=== PATIENT | male | born 1955 | race Caucasian/White ===

== ENCOUNTER → 2018-09-18 | Outpatient (CLI) | payer BC, OTHER ==
[~2018-09-18] VITALS: Ht 180.3 cm; Wt 119.8 kg
[~2018-09-18] MED LIST: AMITRIPTYLINE H10 M3 PO; CELEXA10 MG PO; CHLORZOXAZONE500 MG PO; CRESTOR5 MG PO; EDARBYCLOR 40-1 EAC1 PO; FLEXERIL PO; LOSARTAN POTAS100 MG PO; MEDROLDOSEPACK PO; METFORMIN HCL500 MG PO; MOBIC15 MG PO; NAPROSYN500 MG PO; NEURONTIN 300300 M1 PO; NORCO 5-325 TA1 EAC1 PO; NORVASC10 MG PO; OXYCODONE HCL10 MG PO; PERCOCET PO; ZANAFLEX4 MG PO
[2018-09-18 10:03] VITALS: BP 128/86
--- NOTE | 2018-09-18 10:08 | NUR ---
Pain Clinic Assessment: 1. History of Osteoarthritis: NONE History of Rheumatoid Arthritis: NONE 2. Height: 5 ft. 11 in. 180.3 cm. Weight: 264.0 lb. oz. 119.750 kg. Patient's BMI: 36.8 3. Vital Signs: BP: 128/86 Pulse: 76 Resp: 16 Temp: 02 Sat: 98 ECG Mon: 4. Pain Intensity: 9 5. Fall Risk: Dizziness: N Needs help standing or walking: N Fallen in the last 3 months: N Fall risk comments: Y 6. Patient on Blood Thinner: None 7. History of Hypertension: Y 8. Opioid Therapy greater than 6 weeks: Opiate Contract Signed: 9. Risk Assessment Tool Provided: 10. Functional Assessment Tool: 11. Recreational Drug Use: Never Drug Type: Tobacco Use: Never Smoker Tobacco Type: Amount or Packs/day: How Many Years: Alcohol Use: Yes Frequency: Daily Quant: 1-2
--- NOTE | 2018-09-23 08:41 | HPC ---
[facility] [address] [address] PAIN MANAGEMENT CONSULTATION Name: TATY NUGENT [id number] Admission: 09/18/18 Attend Phys: Ginny Brown MD Discharge: Date of : 59 Report #: [id number] THIS REPORT FOR: //name// CC: Ginny Weems DATE OF SERVICE: 09/18/2018 CHIEF COMPLAINT: Left arm pain and mid back pain. HISTORY OF PRESENT ILLNESS: The patient is a 63-year-old gentleman who has been referred to the pain clinic for evaluation of arm pain. The patient states that for about the last 8 days he has had significant pain involving his right arm. States that he had his first episode after playing golf. While playing golf. He noticed some increase pain in his upper back. He set out that particular golf hole. He played the next hole and after completing play, he noticed that pain continued to worsen. He woke up the next day and started to experience more pain. By 2-3 p.m., he was in significant pain and found the pain quite problematic. He then sought consultation with a physician. He underwent an injection to the affected area in his back. He did not find that is helpful. He was provided with a muscle relaxant medication as well as hydrocodone to help quell the pain. Neither of these seem to be very effective. He has been "lying on his back" for the last 8 days. The pain is quite problematic. Sitting up is very uncomfortable. Pain improves somewhat when he lies flat on his back. He denies any similar episodes of these in the past. ALLERGIES: No known drug allergies. CURRENT MEDICATIONS: Hydrocodone 5 mg one p.o. 4-6 hours p.r.n., chlorzoxazone 500 mg muscle relaxant for spasms, Celexa 10 mg 1/2 tablet, metformin 500 mg, Edarbyclor 40/25, Meloxicam 15 mg, Medrol Dosepak has been used, and amlodipine 10 mg. PAST SURGICAL HISTORY: Coronary calcium scan score 239, 2013 diverticulitis 2011, epididymal cyst 2015. Essential hypertension, coronary artery disease, ejection fraction 65%, 2011, hypercholesterolemia 2002, rotator cuff tear, skin cancer screening, sleep apnea/obstruction, stress echocardiogram 2016, type 2 diabetes 2017. A1c 6.3. PAST SURGICAL HISTORY: Appendectomy, left knee arthroscopy, tonsillectomy. SOCIAL HISTORY: He is a [employer]. He is working at this juncture. REVIEW OF SYSTEMS: Generally good health, hearing loss, chronic sinus problems, frequent urination, numbness and tingling sensation, lightheadedness and [facility] [address] [place] [address] PAIN MANAGEMENT CONSULTATION Name: TATY NUGENT [id number] Admission: 09/18/18 Attend Phys: Ginny Brown MD Discharge: Date of : 59 Report #: [id number] dizziness at times. LABORATORY DATA: The patient this morning had an MRI of his neck. Radiology report has not been released, but findings through my observations indicate C5-C6 and C6-C7 notes disk changes with loss of disk space. There is some narrowing in the area with some bulging and irritation of the nerves at the C5, C6, and C7 area. PAIN CLINIC ASSESSMENT/PQRS: 1. The patient is not being treated for osteoarthritis or rheumatoid arthritis. 2. Height 5 feet 11 inches, weight 264 pounds, BMI is 36.8. 3. VITAL SIGNS: Blood pressure 128/86, pulse 76, respiratory rate 16, room air saturation 98%. 4. Pain intensity 9/10. 5. Fall history: The patient has not fallen in the last 3 months. 6. Blood thinner. The patient is not on a blood thinning medication. 7. Hypertension. The patient is being treated for hypertension. 8. Opioids greater than 6 weeks. 9. Low risk for opioid use. 10. Functional assessment tool 57/70. 11. Recreational drug use, the patient denies use of recreational drugs. 12. Tobacco: The patient has never smoked. 13. Alcohol. The patient drinks 1-2 alcoholic beverages daily. PHYSICAL EXAMINATION: GENERAL: The patient is a well-developed, well-nourished, obese white male, appears his stated age. He is outwardly showing some signs of intense discomfort. States that he has difficulty sitting. While sitting on the bed, complains of increased pain in his right shoulder, right arm irritation in the area of his "funny bone," and numbness and tingling down into the little finger and ring finger on the right side. The patient obviously appears to be in significant amount of discomfort with localization, which generally indicate discomfort. NECK: Without adenopathy or JVD. HEART: Regular rate. ABDOMEN: Nontender. Bowel sounds present. LUNGS: Generally clear to auscultation. EXTREMITIES: Upper extremity muscle strength on the left is judged to be 5/5 for the major muscle groups. The patient's right side with 4-/5 strength. Does complain of pain and discomfort in the shoulder, arm and down into his fingers with decreased muscle strength. The patient's anterior and posterior spring tests was negative. Brian sign is negative. The patient elects to lie down during the interview. Sitting causes worsening of pain and discomfort, which radiates down into his hand. The patient appears anxious. States that this pain has been going on for the last 8 days and is very disruptive to his life. [facility] [address] [place] [address] PAIN MANAGEMENT CONSULTATION Name: TATY NUGENT Room #: REG [facility].#: [id number] Admission: 09/18/18 Attend Phys: Ginny Brown MD Discharge: Date of : 59 Report #: [id number] RECOMMENDATION: The patient's is present. A model was used to indicate the area of probable pathology. We then reviewed the patient's MRI, pointing out the areas of narrowing in his neck. These do correspond to the sensory changes, which he has been experiencing. Risks and benefits of cervical epidural steroid injection was discussed. The patient states that his pain was very severe. We had discussed the policies of [employer] regarding injections. At this point, the patient states that his pain is so severe that he would pay for himself. He would consider paying for himself. I explained to the patient, I am not sure that charges that would occur as a result of an injection without insurance. Because of the patient's severe pain and inability to sit as well as his severe discomfort, we would like to proceed with a cervical epidural steroid injection. We discussed the risks and benefits of the procedure. They could include but are not limited to infection, worsening of pain, nerve damage, bleeding, spinal headache and paresis. The patient elects to proceed. PROCEDURE NOTE: The patient was taken to the procedure area. He was then assisted in getting on the examination table. A pillow was placed under his chest. Fluoroscopy using anterior, posterior as well as lateral viewing were implemented. The patient's neck was sterilely prepped with a Betadine solution. At the C7-T1 interspace, 0.25% bupivacaine was infiltrated into the skin to numb this area. A 25-gauge needle was used. A 17-gauge Tuohy with loss of resistance technique was used to gain access to the epidural space. There was no CSF, heme or paresthesia. A total of 120 mg triamcinolone was injected after appropriate placement at the C7-T1 interspace. The patient tolerated the procedure well. He was taken to the recovery room where he remained for an appropriate amount of time. We have discussed other options to help control the pain. The patient will try Elavil. We explained to the patient the Elavil medication is the one that is commonly used for depression. We find this medication can be quite helpful particularly in pain where nerves were involved. We will have the patient take one 10 mg tablet for 2 days. If he finds that he is not sleeping well and having no problems with it, he will then take a third pill, this will be 20 or 30 mg. He will take this for 2 days. If he finds that it is not helping, the will take an additional which will be 40 mg of Elavil at bedtime. At that point, if his pain continues, he would then add gabapentin 300 mg pills, 1 pill daily for 5 days. He will then follow up with 1 pill in the morning, 1 pill at night for 3 days and rising to the level of 3 pills daily. Should he have any problems or concerns, he will call us. Hopefully, he will continue to improve. We would like to thank you for letting us participate in his care. We hope he continues to improve. <ELECTRONICALLY SIGNED> By: Ginny Brown MD 09/23/18 [id number] Ginny Brown MD /dread
== END | disposition home or self-care (01) ==
LOC: PAIN 09:03
DX: M50.222 Other cervical disc displacement at C5-C6 level (principal); M48.02 Spinal stenosis, cervical region; M54.12 Radiculopathy, cervical region; M54.5 Low back pain; I10 Essential (primary) hypertension; I25.10 Atherosclerotic heart disease of native coronary artery without angina pectoris; E78.00 Pure hypercholesterolemia, unspecified; G47.33 Obstructive sleep apnea (adult) (pediatric); E11.9 Type 2 diabetes mellitus without complications; Z90.49 Acquired absence of other specified parts of digestive tract; Z98.890 Other specified postprocedural states; Z79.891 Long term (current) use of opiate analgesic; Z79.899 Other long term (current) drug therapy; Z68.36 Body mass index [BMI] 36.0-36.9, adult

== ENCOUNTER → 2018-10-07 | Outpatient (CLI) | payer BC, OTHER ==
[~2018-10-07] VITALS: Ht 180.3 cm; Wt 122.5 kg
--- NOTE | ~2018-10-07 | HPC ---
[facility] [address] [place] [address] PAIN MANAGEMENT CONSULTATION Name: TATY NUGENT Room #: [facility].#: [id number] Admission: 10/07/18 Attend Phys: Ginny Brown MD Discharge: Date of : 59 Report #: [id number] THIS REPORT FOR: //name// CC: Ginny Weems DATE OF SERVICE: 10/14/2018 CHIEF COMPLAINT: Upper back and right arm pain. HISTORY: The patient is a 63-year-old gentleman who has been seen in the pain clinic because of pain and discomfort. He is experiencing pain and discomfort involving his right arm. He was playing golf. Noticed onset of pain and discomfort, which has been quite problematic. He then underwent a cervical epidural steroid injection. He notices significant improvement in his pain. He is having less pain, but still has some numbness and tingling in the right arm. He had no complications from the last injection. He is contemplating whether or not another injection would be warranted. Rates his pain as a 2-3/10. Notes that the pain is exacerbated when he is standing. Notes it improves somewhat when he is lying down and has taken the stretch of his right arm. Stretching the arm makes things more difficult. ALLERGIES: No known drug allergies. CURRENT MEDICATIONS: Hydrocodone 5/325 one p.o. 4-6 hours p.r.n., chlorzoxazone 500 mg muscle relaxant for spasms, Celebrex, Celexa 10 mg 1/2 tablet, metformin 500 mg, Edarbyclor 40/25, meloxicam 15 mg, amlodipine 10 mg. PAIN CLINIC ASSESSMENT/PQRS: 1. The patient is not being treated for osteoarthritis or rheumatoid arthritis. 2. Height 5 feet 11 inches, weight 270 pounds, BMI is 37.7. 3. Vital signs: Blood pressure 135/70, pulse is 84, respiratory rate 16, room air saturation 96%. 4. Pain intensity 2-05/10. 5. Fall risk. The patient has not fallen in the last 3 months. 6. Blood thinner. The patient is not on a blood thinning medication. 7. Hypertension. The patient is being treated for hypertension. 8. Opioids greater than 6 weeks. The patient is not on a regular opioid regimen. 9. Risk assessment tool, low for opioid use. 10. Functional assessment tool 57/70. 11. Recreational drugs. The patient denies use of recreational drugs. 12. Tobacco: The patient has never smoked. 13. Alcohol: The patient drinks alcoholic beverages on a weekly basis. PHYSICAL EXAMINATION: [facility] [address] [place] [address] PAIN MANAGEMENT CONSULTATION Name: TATY NUGENT Room #: REG [facility]#: [id number] Admission: 10/07/18 Attend Phys: Ginny Brown MD Discharge: Date of : 59 Report #: [id number] GENERAL: The patient is a well-developed, well-nourished, somewhat obese white male, appears his stated age. He is alert and oriented x 3. His affect is appropriate. Speech is fluent. HEENT: Normocephalic, atraumatic. Extraocular eye muscles intact. Sclerae nonicteric. Mucous membranes are moist. NECK: Without adenopathy or JVD. HEART: Regular rate. ABDOMEN: Nontender. Bowel sounds present. LUNGS: Generally clear to auscultation. EXTREMITIES: Upper extremity muscle strength judged to be 5-/5 for the major muscle groups in the upper extremity. The patient has some numbness and weakness involved in the right arm. Muscle strength 5/5 for the major muscle groups. The patient has most discomfort with this sensation of numbness in the right arm. Lower extremity muscle strength is judged to be 5/5 for the major muscle groups. IMPRESSION: 1. Cervical radiculopathy. 2. Hypertension. 3. Coronary artery disease. 4. Sleep apnea. 5. Diabetes. RECOMMENDATIONS: We discussed the treatment options with the patient. Risk and benefits of an epidural steroid injection were again discussed. The patient has improved from the initial visit. He is having less pain, but does note some numbness and tingling down into his arm. At this juncture, we have discussed the conservative approach. He will try a Medrol Dosepak to note its efficacy at this point. He will then return to the pain clinic in the future. We explained to the patient that most insurance carriers require at least 30 days between injections. He is willing to use a Medrol Dosepak. He will take this and use it over the next few days. Hopefully, his numbness will continue to improve and subside. If it continues to be problematic and notes radicular pain. We will consider a cervical epidural steroid injection in the near future. We would like to thank you for letting us participate in his care. We hope he continues to improve. By: [id number] Ginny Brown MD /dread
[2018-10-07 08:20] VITALS: BP 135/70
--- NOTE | 2018-10-07 08:36 | NUR ---
Pain Clinic Assessment: 1. History of Osteoarthritis: NONE History of Rheumatoid Arthritis: NONE 2. Height: 5 ft. 11 in. 180.3 cm. Weight: 270.0 lb. oz. 122.472 kg. Patient's BMI: 37.7 3. Vital Signs: BP: 135/70 Pulse: 84 Resp: 16 Temp: 02 Sat: 96 ECG Mon: 4. Pain Intensity: 2-3 5. Fall Risk: Dizziness: Y Needs help standing or walking: N Fallen in the last 3 months: N Fall risk comments: Y 6. Patient on Blood Thinner: None 7. History of Hypertension: Y 8. Opioid Therapy greater than 6 weeks: N Opiate Contract Signed: 9. Risk Assessment Tool Provided: 10. Functional Assessment Tool: 11. Recreational Drug Use: Never Drug Type: Tobacco Use: Never Smoker Tobacco Type: Amount or Packs/day: How Many Years: Alcohol Use: Yes Frequency: Weekly Quant:
== END ==
LOC: PAIN 06:47
DX: M79.601 Pain in right arm (principal); M54.9 Dorsalgia, unspecified; M54.12 Radiculopathy, cervical region; I10 Essential (primary) hypertension; I25.10 Atherosclerotic heart disease of native coronary artery without angina pectoris; G47.30 Sleep apnea, unspecified; E11.9 Type 2 diabetes mellitus without complications; Z79.899 Other long term (current) drug therapy; Z79.84 Long term (current) use of oral hypoglycemic drugs

== ENCOUNTER → 2018-10-21 | Outpatient (CLI) | payer BC, OTHER ==
[~2018-10-21] VITALS: Ht 180.3 cm; Wt 121.9 kg
--- NOTE | ~2018-10-21 | HPC ---
[facility] [address] [address] PAIN MANAGEMENT CONSULTATION Name: TATY NUGENT Room #: REG [facility]#: [id number] Admission: 10/21/18 Attend Phys: Ginny Brown MD Discharge: Date of : 59 Report #: [id number] THIS REPORT FOR: //name// CC: Ginny Weems DATE OF SERVICE: 10/21/2018 CHIEF COMPLAINT: The pain has improved, but I am still having some numbness on the end of my ring finger and little finger on the right hand. HISTORY: The patient is a 63-year-old gentleman who has been seen in the pain clinic because of neck pain. He was golfing. After playing golf, he noted some pain and discomfort. He stopped playing at that particular hole. The subsequent whole he begin playing again. He noted increasing pain and discomfort with some spasms up in his neck as well as down into his right hand. He was seen in the pain clinic and underwent a cervical epidural steroid injection. He did note some improvement in the pain. Continues to have some discomfort in the right side, which he finds somewhat distressing. After working for long periods during the day, he notes that his arm becomes more problematic in the afternoon. He notes that the numbness in his fingers affects his ability to write. He has had no complication from the last injection and has returned today with the hopes of undergoing another epidural steroid injection. ALLERGIES: No known drug allergies. CURRENT MEDICATIONS: Hydrocodone 5/325 one p.o. 4-6 hours p.r.n., chlorzoxazone 500 mg for muscle spasms, Celebrex, Celexa 10 mg one-half tablet, metformin 500 mg, Edarbyclor 40/25, meloxicam 15 mg, amlodipine 10 mg. PAIN CLINIC ASSESSMENT AND PQRS: 1. The patient is not being treated for osteoarthritis or rheumatoid arthritis. 2. Height 5 feet 11 inches, weight 268 pounds, BMI is 37.5. 3. Vital Signs: Blood pressure 118/70, pulse 89, respiratory rate 16, room air saturation is 94%. 4. Pain intensity 3-10. 5. Fall history: The patient has not fallen in the last 3 months. 6. Blood thinner. The patient is not on a blood thinning medication. 7. Hypertension. The patient is being treated for hypertension. 8. Opioids greater than 6 weeks. The patient is not on an opioid contract. 9. Risk assessment tool, low for opioid use. 10. Functional assessment tool 57/70. 11. Recreational drug use. The patient denies use of recreational drugs. 12. Tobacco: The patient has never smoked. 13. Alcohol: The patient does drink alcoholic beverages on occasion. [address] [address] PAIN MANAGEMENT CONSULTATION Name: TATY NUGENT Room #: REG CLI [facility].#: [id number] Admission: 10/21/18 Attend Phys: Ginny Brown MD Discharge: Date of : 59 Report #: [id number] PHYSICAL EXAMINATION: GENERAL: The patient is a well-developed, well-nourished, somewhat obese white male, appears his stated age. He is alert and oriented x 3. His affect is appropriate. Speech is fluent. HEENT: Normocephalic, atraumatic. Extraocular eye muscles intact. Sclerae nonicteric. Mucous membranes are moist. NECK: Without adenopathy or JVD. HEART: Regular rate. ABDOMEN: Nontender. Bowel sounds present. LUNGS: Clear to auscultation. EXTREMITIES: Upper extremity muscle strength judged to be 5/5 for the major muscle groups in the upper extremity. The patient has some pain and discomfort in the right shoulder with pain radiating down to the arm, forearm and down into his fingers. The dorsum of his hand is numb with numbness in the tip of his ring finger and little finger. IMPRESSION: 1. Cervical radiculopathy, which has improved, but still problematic. 2. Hypertension. 3. Coronary artery disease. 4. Sleep apnea. 5. Diabetes. RECOMMENDATIONS: We discussed treatment options with the patient. Risks and benefits of an epidural steroid injection in the cervical area were discussed. They include but are not limited to infection, worsening in pain, no improvement in pain, spinal headache. The patient elects to proceed. PROCEDURE NOTE: The patient was assisted in getting on examination table. His back was sterilely prepped with a Betadine solution. A 0.25% bupivacaine was infiltrated at the C7-T1 interspace. A 25-gauge needle was then used to anesthetize the area. A 17-gauge Tuohy with loss of resistance technique was used to gain access to the epidural space. There was no CSF, heme or paresthesia. A total of 120 mg triamcinolone was injected. The patient tolerated the procedure well. ____ seconds fluoroscopy time was used. The patient's pain was 3 at the time of discharge. He will follow up in the future as needed. The patient will call the pain clinic should he have any questions. We would like to thank you for letting us participate in his care. We hope he continues to improve. By: [id number] Ginny Brown MD /nt
[2018-10-21 08:29] VITALS: BP 118/70
--- NOTE | 2018-10-21 08:40 | NUR ---
Pain Clinic Assessment: 1. History of Osteoarthritis: NONE History of Rheumatoid Arthritis: NONE 2. Height: 5 ft. 11 in. 180.3 cm. Weight: 268.8 lb. oz. 121.927 kg. Patient's BMI: 37.5 3. Vital Signs: BP: 118/70 Pulse: 89 Resp: 16 Temp: 02 Sat: 94 ECG Mon: 4. Pain Intensity: 3-4 5. Fall Risk: Dizziness: Y Needs help standing or walking: N Fallen in the last 3 months: N Fall risk comments: Y 6. Patient on Blood Thinner: None 7. History of Hypertension: Y 8. Opioid Therapy greater than 6 weeks: N Opiate Contract Signed: 9. Risk Assessment Tool Provided: 10. Functional Assessment Tool: 11. Recreational Drug Use: Never Drug Type: Tobacco Use: Never Smoker Tobacco Type: Amount or Packs/day: How Many Years: Alcohol Use: Yes Frequency: Quant:
== END | disposition home or self-care (01) ==
LOC: PAIN 06:36
DX: M54.12 Radiculopathy, cervical region (principal); G89.29 Other chronic pain; I10 Essential (primary) hypertension; E11.9 Type 2 diabetes mellitus without complications; I25.10 Atherosclerotic heart disease of native coronary artery without angina pectoris; G47.30 Sleep apnea, unspecified; Z79.891 Long term (current) use of opiate analgesic; Z79.899 Other long term (current) drug therapy; Z98.890 Other specified postprocedural states

== ENCOUNTER → 2019-02-19 | Outpatient (CLI) | payer OTHER | LOC: CAT 10:15 | DX: Z13.6 Encounter for screening for cardiovascular disorders (principal); I25.10 Atherosclerotic heart disease of native coronary artery without angina pectoris; E78.00 Pure hypercholesterolemia, unspecified ==

== ENCOUNTER → 2021-01-01 | Outpatient (CLI) | payer BC, OTHER | LOC: SJCVCIMAG 06:58 | PROVIDERS: ATTEND Internal Medicine Cardiovascular Disease | DX: I25.10 Atherosclerotic heart disease of native coronary artery without angina pectoris (principal); I10 Essential (primary) hypertension; R06.00 Dyspnea, unspecified; E11.9 Type 2 diabetes mellitus without complications; E78.00 Pure hypercholesterolemia, unspecified; G47.33 Obstructive sleep apnea (adult) (pediatric); Z79.899 Other long term (current) drug therapy; Z72.89 Other problems related to lifestyle ==